=== PATIENT | male | born 2000 | race Caucasian/White ===

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

== ENCOUNTER 2022-06-29 13:13 | Emergency (ER) | payer MEDICAID, SELFPAY ==
--- NOTE | ~2022-06-29 | XR_ITS ---
EXAMINATION: XR FINGER, RIGHT CLINICAL INFORMATION: Right thumb trauma. COMPARISON: None TECHNIQUE: 3 views of the right hand first digit. FINDINGS: The bones and soft tissues are normal. No fracture. Alignment is anatomic. Joint spaces are maintained. XR/XR finger RT min 2V IMPRESSION: Unremarkable first digit.
[2022-06-29 14:04] VITALS: BP 132/70; PULSE 62; RESP 16; TEMP 36.4; O2SAT 100; BMI 33.0
--- NOTE | 2022-06-29 15:19 | ED.WOUNDLAC ---
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 Denies direct crush, trauma/fall, numbness/tingling. Vaccinations up-to-date Onset (ago): hour(s) Related Data Previous Rx's Medication Instructions Recorded acetaminophen 500 mg tablet 1,000 mg PO QID PRN fever or pain 12/30/20 (Tylenol Extra Strength) #14 tabs ibuprofen 800 mg tablet 800 mg PO Q8H PRN pain #14 tabs 12/30/20 bacitracin 500 unit/gram topical 1 appl topical BID #30 grams 06/29/22 ointment Allergies Allergy/AdvReac Type Severity Reaction Status Date / Time No Known Allergies Allergy Unverified 01/03/20 17:42 Review of Systems Review of Systems: Constitutional: No Fever, No Chills ENT/Mouth: No Ear Pain, No Nasal Congestion, No Sinus Pain, No Hoarseness, No sore throat, No Rhinorrhea, No Swallowing Difficulty Cardiovascular: No Chest Pain, No SOB Respiratory: No Cough, No Sputum, No Wheezing Gastrointestinal: No Nausea, No Vomiting, No Diarrhea, No Constipation, No Abdominal pain Musculoskeletal: + joint pain, No Myalgias, No Joint Swelling Skin: +Skin Lesions, No rash Neuro: No Weakness, No Numbness, No Paresthesias Yes all other systems are reviewed and are negative Constitutional: Constitutional: Reports as per [facility] Past Medical History Attestation statement: The following information was validated with the patient. Social History Social History Advance Directives: No Advance Directives Information Provided: Yes Physical Exam Vital Signs: Vital Signs: Last Vital Signs Temp 97.6 F 06/29/22 14:04 Pulse 62 06/29/22 14:04 Resp 16 06/29/22 14:04 BP 132/70 06/29/22 14:04 Pulse Ox 100 06/29/22 14:04 O2 Del Method 03/14/23 14:04 BMI result Body Mass Index 33.0 Const: General: cooperative, healthy appearing and no acute distress Orientation/consciousness: patient oriented x3 Limitations: no limitations HEENT: Head: Yes normal to inspection and Yes atraumatic Ears: hearing grossly normal bilaterally General nose exam: Normal external nose present Face and sinus: Yes normal facial exam Eyes: General: appearance normal, both eyes and all related structures EOM: EOMs intact bilaterally Neck: Neck: Yes normal visual inspection and Yes no meningeal signs Resp: Effort & Inspection: normal respiratory effort and no respiratory distress Cardio: Rate: regular rate Heart sounds: S1 normal heart sound present and S2 normal heart sound present Peripheral pulses: radial pulses present and ulnar radial pulses present Skin: Rashes: no rashes Neuro: General: patient oriented x3, tone normal and no meningeal signs Gait exam (Neuro): Normal gait present Extrem: Other: + superficial abrasion to right some with mild tenderness to palpation. No laceration. No drainage. FROM intact, NV intact. Finger to thumb opposition intact Course Course Course Narrative: XR finger RT min 2V IMPRESSION: Unremarkable first digit. Results discussed with patient including worrisome signs and symptoms and strict return precautions, and when to return to the emergency department. They verbalized understanding and feel safe for discharge at this time. Medical Decision Making Medical Decision Making MDM Narrative: 21-year-old male with no significant past medical history presenting to the ED complaining of right thumb pain/ injury S/P pulling snowblow starter [employer]. On exam vital signs stable, NAD, nontoxic appearing, physical exam as above with superficial abrasion to right thumb. Full range of motion and neurovascularly intact. Concern for strain. No laceration. Low suspicion for fracture/dislocation or tendon/ligament or rupture Plan: X-rays, wound care Please refer to course for remaining clinical decision making, interpretation of labs/imaging results, and discussions with consultants and/or family members. Differential Diagnosis Differential Diagnoses: The differential diagnosis associated with the presentation includes As above Admission/Observation Consideration of admission/observation: Escalation of care including admission/observation considered Lab Data [facility] Lab Attestation statement: I reviewed the patient's lab results. Radiology Impression Discussion of test interpretation with radiology: I have reviewed the radiologist's reading. External Record Review External record reviewed: Inpatient record, Office record, Outpatient record, Prior outpatient labs, Prior outpatient radiology, Primary care record and Outside ED record Discharge Plan Discharge Clinical Impression: Abrasion Patient Disposition: Home, Self-Care Instructions: Abrasion (ED) Additional Instructions: your Xray was unremarkbale keep dry and clean apply bacitracian daily if looks infected or red, or there is drainage return to the ED Prescriptions: New bacitracin 500 unit/gram ointment 1 appl topical BID Qty: 30 0RF No Action ibuprofen 800 mg tablet 800 mg PO Q8H PRN (Reason: pain) Qty: 14 0RF acetaminophen [Tylenol Extra Strength] 500 mg tablet 1,000 mg PO QID PRN (Reason: fever or pain) Qty: 14 0RF Referrals: Physician,None [Physician] - 5 days Stand Alone Forms: Work/School Release
== END 2022-06-29 16:04 | disposition home or self-care (01) ==
PROVIDERS: Emergency Provider Emergency Medicine
DX: S60.311A Abrasion of right thumb, initial encounter (principal); W22.8XXA Striking against or struck by other objects, initial encounter; M79.644 Pain in right finger(s); Y93.29 Activity, other involving ice and snow; Y92.038 Other place in apartment as the place of occurrence of the external cause; Y99.9 Unspecified external cause status
CPT/HCPCS: 73140; 99282; 99283

== ENCOUNTER 2023-07-19 04:16 | Emergency (ER) | payer SELFPAY ==
--- NOTE | 2023-07-19 | ECG_ITS ---
Test Reason : CHEST PAIN Blood Pressure : / mmHG Vent. Rate : 074 BPM Atrial Rate : 074 BPM P-R Int : 160 ms QRS Dur : 096 ms QT Int : 364 ms P-R-T Axes : -01 -17 -10 degrees QTc Int : 404 ms Normal sinus rhythm Minimal voltage criteria for LVH, may be normal variant ( R in aVL ) Borderline ECG No previous ECGs available Referred By: Generic ED Physician Electronically Signed By:SEBASTIÁN CHRISTIE MD
[2023-07-19 04:24] VITALS: BP 136/54; PULSE 71; RESP 16; TEMP 36.7; O2SAT 96; BMI 34.5
[2023-07-19 04:32] LABS: Basophils Percent Auto 0.3 % (0-2); Eosinophils Absolute Auto 0.5 X10*3/uL (0.0-0.4); Eosinophils Percent Auto 5.1 % (0-4); Hematocrit 45.2 % (42.0-52.0); Hemoglobin 15.6 g/dl (14.0-18.0); Imm Gran Abs Auto 0.03 X10*3/uL (0.00-0.03); Imm Gran Pct Auto 0.3 % (0.0-0.4); Lymphocytes Absolute Auto 3.2 X10*3/uL (1.2-4.9); Lymphocytes Percent Auto 31.9 % (20-40); MANUAL DIFF FLAG NO; Mean Corpuscular HGB Conc 34.5 g/dl (31.0-36.0); Mean Corpuscular Hemoglobin 28.6 pg (27.0-33.0); Mean Corpuscular Volume 82.9 fL (80.0-98.0); Monocytes Absolute Auto 0.8 X10*3/uL (0.1-1.2); Monocytes Percent Auto 7.9 % (2-11); Neutrophils Absolute Auto 5.4 x10*3/uL (2.0-8.3); Neutrophils Percent Auto 54.5 % (45-73); Platelet Count 276 X10*3/uL (160-400); Red Blood Count 5.45 X10*6/uL (4.60-5.80); White Blood Count 9.9 X10*3/uL (4.8-10.8)
[2023-07-19 04:49] LABS: Alanine Aminotransferase 31 U/L (0-40); Albumin Level 4.6 g/dL (3.5-5.0); Alkaline Phosphatase 51 U/L (39-117); Anion Gap 13 (12-20); Aspartate Amino Transferase 26 U/L (5-37); Bilirubin Total 0.5 mg/dL (0.0-1.0); Blood Urea Nitrogen 26 mg/dL (9-16); Calcium 9.6 mg/dL (8.4-10.2); Carbon Dioxide 27 mmol/L (22-29); Chloride 108 mmol/L (96-108); Creatinine Clr Calc Pharmacy 150.7; Estimated Glomerular Filt Rate > 60; Glucose Random 88 mg/dL (60-115); Sodium 144 mmol/L (135-145); Total Protein 7.6 g/dL (6.5-8.0)
[2023-07-19 04:57] LABS: Troponin-I High Sensitivity < 2.7 ng/L (<3.5-35.0)
--- NOTE | 2023-07-19 06:46 | ED.CHESTPAIN ---
HPI - Chest Pain General Chief Complaint: Chest Pain Stated Complaint: chest pain at work Time Seen by Provider: 07/19/23 06:43 Source: patient Mode of arrival: ambulatory Limitations: no limitations History of Present Illness HPI narrative: Patient comes to the emergency room complaining of right-sided chest pain that started while he was working. 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 Patient denies any shortness of breath. Patient states the pain started approximately 12 hours ago. Related Data Previous Rx's Medication Instructions Recorded acetaminophen 500 mg tablet 1,000 mg (2 x 500 mg) PO QID PRN 12/30/20 (Tylenol Extra Strength) fever or pain #14 tabs ibuprofen 800 mg tablet 800 mg PO Q8H PRN pain #14 tabs 12/30/20 bacitracin 500 unit/gram topical 1 appl topical BID #30 grams 06/29/22 ointment ibuprofen 600 mg tablet 600 mg PO Q6H PRN fever or pain 07/19/23 #20 tabs Allergies Allergy/AdvReac Type Severity Reaction Status Date / Time No Known Allergies Allergy Unverified 01/03/20 17:42 Review of Systems Review of Systems: Constitutional : No Weight loss, No Fever, No Chills, No Night Sweats, No Fatigue, No Malaise ENT/Mouth : No Hearing loss, No Ear Pain, No Nasal Congestion, No Sinus Pain, No Hoarseness, No sore throat, No Rhinorrhea, No Swallowing Difficulty Eyes: No Eye Pain, No Swelling, No Redness, No Foreign Body, No Discharge, No Vision Changes Cardiovascular : Complaining of right-sided Chest Pain, No SOB, No Dyspnea on Exertion, No Orthopnea, No Edema, No Palpitations Respiratory : No Cough, No Sputum, No Wheezing, No Smoke Exposure, No Dyspnea Gastrointestinal : No Nausea, No Vomiting, No Diarrhea, No Constipation, No abdominal Pain, No Hematochezia, No Melena Genitourinary : no irregular bleeding, No Dysuria, No Urinary Frequency, No Hematuria, No Urinary Incontinence, No Urgency, No Flank Pain, No Urinary Flow Changes, No Hesitancy Musculoskeletal : No joint pain, No Myalgias, No Joint Swelling Skin : No Skin Lesions, No rash Neuro : No Weakness, No Numbness, No Paresthesias, No Loss of Consciousness, No Dizziness, No Headache Psych : No Anxiety/Panic, No Depression, No SI/HI/AH/VH, No Social Issues, Heme/Lymph: No Bruising, No Bleeding,No Lymphadenopathy Endocrine : No Polyuria, No Polydipsia, No Temperature Intolerance Physical Exam Vital Signs: Vital Signs: Last Vital Signs Temp 98.0 F 07/19/23 04:24 Pulse 71 07/19/23 04:24 Resp 16 07/19/23 04:24 BP 136/54 L 07/19/23 04:24 Pulse Ox 96 07/19/23 04:24 O2 Del Method Room Air 07/19/23 04:24 BMI result Body Mass Index 34.5 Const: Other: Appearance: Alert. Oriented X3. No acute distress. Eyes: Pupils equal, round and reactive to light. ENT: Pharynx normal. Neck: Normal inspection. Neck supple. No lymph nodes noted. No crepitus CVS: Reproducible right chest pain to palpation, Normal heart rate and rhythm. Pulses normal. Normal S1 and S2 Respiratory: No respiratory distress. Breath sounds normal. No Wheezing. No rales Abdomen: Soft and nontender. No rigidity. No distention. Skin: Skin warm and dry. Normal skin color. Normal skin turgor. Extremities: No lower extremity edema. No Lacerations. No Rash Neuro: Oriented X 3. No motor deficit. No sensory deficit. Moving all extremities. No slurred speech. CN 2 through 12 grossly intact Psych: calm, cooperative, normal affect Medical Decision Making Medical Decision Making [facility] Narrative: My interpretation of labs: Normal hematology, chemistry, normal troponin -my interpretation of EKG: Normal sinus room, heart rate 74, no ST segment depression or elevation, nonspecific T-wave inversion in lead 3, QTC 404 -discussed the physical exam with the patient, patient has reproducible chest pain, likely musculoskeletal pain -heart score 0 Differential Diagnosis Differential Diagnoses: The differential diagnosis associated with the presentation includes (Musculoskeletal pain, ACS, anxiety) Lab Data [facility] Lab Attestation statement: I reviewed the patient's lab results. 07/19/23 04:26 07/19/23 04:26 Labs: Lab Results 07/19/23 Range/Units 04:26 WBC 9.9 (4.8-10.8) X10*3/uL RBC 5.45 (4.60-5.80) X10*6/uL Hgb 15.6 (14.0-18.0) g/dl Hct 45.2 (42.0-52.0) % MCV 82.9 (80.0-98.0) fL MCH 28.6 (27.0-33.0) pg MCHC 34.5 (31.0-36.0) g/dl RDW 12.0 (11.0-16.0) % Plt Count 276 (160-400) X10*3/uL MPV 10.0 (9.4-12.4) fL Immature Gran % (Auto) 0.3 (0.0-0.4) % Neut % (Auto) 54.5 (45-73) % Lymph % (Auto) 31.9 (20-40) % [place] % (Auto) 7.9 (2-11) % Eos % (Auto) 5.1 H (0-4) % Baso % (Auto) 0.3 (0-2) % Lymph # (Auto) 3.2 (1.2-4.9) X10*3/uL [place] # (Auto) 0.8 (0.1-1.2) X10*3/uL Eos # (Auto) 0.5 H (0.0-0.4) X10*3/uL Baso # (Auto) 0.0 (0.0-0.2) X10*3/uL Abs Immat Gran (auto) 0.03 (0.00-0.03) X10*3/uL Absolute Neuts (auto) 5.4 (2.0-8.3) x10*3/uL Absolute Nucleated RBC 0.000 (0.0-0.012) X10*3/uL Nucleated RBC % (auto) 0.0 (0.0-0.2) /100WBC Sodium 144 (135-145) mmol/L Potassium 4.0 (3.3-5.1) mmol/L Chloride 108 (96-108) mmol/L Carbon Dioxide 27 (22-29) mmol/L Anion Gap 13 (12-20) BUN 26 H (9-16) mg/dL Creatinine 0.88 (0.5-1.4) mg/dL Estim Creat Clear Calc 150.7 Estimated GFR > 60 Random Glucose 88 (60-115) mg/dL Calcium 9.6 (8.4-10.2) mg/dL Total Bilirubin 0.5 (0.0-1.0) mg/dL AST 26 (5-37) U/L ALT 31 (0-40) U/L Alkaline Phosphatase 51 (39-117) U/L Troponin I High Sens < 2.7 (<3.5-35.0) ng/L Total Protein 7.6 (6.5-8.0) g/dL Albumin 4.6 (3.5-5.0) g/dL Independent Interpretation I performed an independent interpretation of an: EKG Scores Heart Score History: -0- slightly suspicious Age: -0- < or = 45 Risk factory: -0- no risk factors known Troponin: -0- < or = normal limit Discharge Plan Discharge Clinical Impression: Atypical chest pain Patient Disposition: Home, Self-Care Instructions: Chest Pain (ED), Chest Wall Pain (ED) Additional Instructions: Please follow-up with your primary care physician tomorrow. If you have any worsening or new symptoms, please return to the emergency room or call 911 Prescriptions: New ibuprofen 600 mg tablet 600 mg PO Q6H PRN (Reason: fever or pain) Qty: 20 0RF No Action ibuprofen 800 mg tablet 800 mg PO Q8H PRN (Reason: pain) Qty: 14 0RF acetaminophen [Tylenol Extra Strength] 500 mg tablet 1,000 mg PO QID PRN (Reason: fever or pain) Qty: 14 0RF bacitracin 500 unit/gram ointment 1 appl topical BID Qty: 30 0RF
[2023-07-19 06:50] VITALS: BP 128/59; PULSE 75; RESP 16; TEMP 36.7; O2SAT 99
== END 2023-07-19 06:57 | disposition home or self-care (01) ==
PROVIDERS: Emergency Provider Emergency Medicine
DX: R07.89 Other chest pain (principal)
CPT/HCPCS: 36415; 80053; 84484; 85025; 93005; 99283; 99284

== ENCOUNTER → 2023-07-19 04:19 | Outpatient (BNV) | payer OTHER, SELFPAY | PROVIDERS: Emergency Provider Emergency Medicine; Visit Provider Internal Medicine Cardiovascular Disease | DX: R07.9 Chest pain, unspecified (principal) | CPT/HCPCS: 93010 ==

== ENCOUNTER 2023-08-27 02:04 | Emergency (ER) | payer SELFPAY ==
--- NOTE | ~2023-08-27 | XR_ITS ---
EXAMINATION: XR KNEE, LEFT CLINICAL INFORMATION: Injury at [employer] COMPARISON: 05/23/2017 TECHNIQUE: Two views of the left knee. FINDINGS: Osseous alignment is anatomic, and the joint spaces are maintained. No acute fracture is seen. No significant effusion. XR/XR knee LT 2V IMPRESSION: No acute findings.
[2023-08-27 02:14] VITALS: BP 141/85; PULSE 70; RESP 14; TEMP 36.9; O2SAT 98; BMI 36.3
[2023-08-27 02:56] VITALS: BP 132/82; PULSE 87; RESP 18; TEMP 36.7; O2SAT 95
--- NOTE | 2023-08-27 03:19 | ED_ITS ---
HPI - Extremity Injury (Lower) General Chief Complaint: Extremity Injury, Lower Stated Complaint: left [place] [email or web address] [place] Time Seen by Provider: 08/27/23 02:59 Source: patient Mode of arrival: ambulatory Limitations: no limitations History of Present Illness HPI Narrative: Patient with jumping on [email or web address] when he fell his left knee popped backwards since then complaining of increased pain when bear wt on the left leg with slight swelling of the left knee joint Related Data Previous Rx's ?Medication ?Instructions ?Recorded acetaminophen 500 mg tablet 1,000 mg (2 x 500 mg) PO QID PRN 12/30/20 (Tylenol Extra Strength) fever or pain #14 tabs ibuprofen 800 mg tablet 800 mg PO Q8H PRN pain #14 tabs 12/30/20 bacitracin 500 unit/gram topical 1 appl topical BID #30 grams 06/29/22 ointment ibuprofen 600 mg tablet 600 mg PO Q6H PRN fever or pain 07/19/23 #20 tabs ibuprofen 600 mg tablet 600 mg PO Q6H PRN fever or pain 08/27/23 #30 tabs Allergies Allergy/AdvReac Type Severity Reaction Status Date / Time No Known Allergies Allergy Verified 08/27/23 02:15 Review of Systems 2 Review of Systems: Yes all other systems are reviewed and are negative PMFSH Social History Social History Alcohol intake: current Alcohol intake frequency: a few times a month Smoked in Last 30 Days: No Use of substances other than those prescribed or required for medical reasons: No Advance Directives: No Advance Directives Information Provided: Yes Physical Exam 2 Vital Signs: Vital Signs: Last Vital Signs Temp 98.0 F 08/27/23 03:53 Pulse 84 08/27/23 03:53 Resp 18 08/27/23 03:53 BP 148/73 H 08/27/23 03:53 Pulse Ox 98 08/27/23 03:53 O2 Del Method Room Air 08/27/23 03:53 BMI result Body Mass Index 36.3 Extrem: Knee images: 1. Mild joint effusion diffuse tenderness good range of movement Chance sign negative anterior drawer sign negative increased pain on ambulation Medications Administered Discontinued Medications Generic Name Dose Route Start Last Admin Trade Name Freq PRN Reason Stop Dose Admin Ibuprofen 600 mg 08/27/23 03:28 08/27/23 03:38 Ibuprofen 600 Mg Tablet PO 08/27/23 03:29 600 mg ONCE ONE Administration Medical Decision Making Medical Decision Making [facility] Narrative: Patient with left knee injury x-ray negative for fracture clinically lateral ligament strain will apply knee immobilizer ibuprofen for pain crutches for support Independent Interpretation I performed an independent interpretation of an: Plain X-Ray Interpretation: Knee effusion+ no fracture Radiology Impression Discussion of test interpretation with radiology: I have reviewed the radiologist's reading. Discharge Plan Discharge Clinical Impression: Strain of left knee Patient Disposition: Home, Self-Care Instructions: Knee Sprain (ED) Additional Instructions: Wear knee brace and use crutches for ambulation Ibuprofen for pain Avoid going upstairs or downstairs Follow with your PCP if not better in 2 weeks Prescriptions: New ibuprofen 600 mg tablet 600 mg PO Q6H PRN (Reason: fever or pain) Qty: 30 0RF No Action ibuprofen 800 mg tablet 800 mg PO Q8H PRN (Reason: pain) Qty: 14 0RF acetaminophen [Tylenol Extra Strength] 500 mg tablet 1,000 mg PO QID PRN (Reason: fever or pain) Qty: 14 0RF bacitracin 500 unit/gram ointment 1 appl topical BID Qty: 30 0RF ibuprofen 600 mg tablet 600 mg PO Q6H PRN (Reason: fever or pain) Qty: 20 0RF Stand Alone Forms: Work/School Release Interventions: ED Discharge Assessment Last Done: 08/27/23 03:53 Discharge Date/Time: 08/27/23 03:53 Print Language: Wolof
[2023-08-27] MEDS: Ibuprofen 600 MG TABLET PO (03:38)
[2023-08-27 03:51] VITALS: BP 148/73; PULSE 84; RESP 18; TEMP 36.7; O2SAT 98
[2023-08-27 03:53] VITALS: BP 148/73; PULSE 84; RESP 18; TEMP 36.7; O2SAT 98
== END 2023-08-27 03:53 | disposition home or self-care (01) ==
PROVIDERS: Emergency Provider Internal Medicine
DX: S86.912A Strain of unspecified muscle(s) and tendon(s) at lower leg level, left leg, initial encounter (principal); X58.XXXA Exposure to other specified factors, initial encounter; Y93.9 Activity, unspecified; Y92.9 Unspecified place or not applicable; Y99.9 Unspecified external cause status; M25.562 Pain in left knee
CPT/HCPCS: 73560; 99283; 99284

== ENCOUNTER 2023-11-21 19:20 | Emergency (ER) | payer OTHER, SELFPAY ==
[2023-11-21 20:32] VITALS: BP 147/73; PULSE 70; RESP 16; TEMP 36.6; O2SAT 98; BMI 36.3
--- NOTE | 2023-11-21 20:38 | ED_ITS ---
HPI - General Adult General Chief complaint: Skin/Abscess/Foreign Body Stated complaint: rash Time Seen by Provider: 11/21/23 20:37 Source: patient Mode of arrival: ambulatory Limitations: no limitations History of Present Illness ED Provider: Tian Whitehead PA-C HPI narrative: 23 yold healthy male presents to the ED itchy rash on abdomen, upper extremities, lower extremites, and face since last . patient states no new medicaitions, detergents, or foods. Patient denies being bitten by animal. patient states no lip swelling, tongue swelling, facial swelling, chest pain, shortness of breath, or sensation of throat closing. Related Data Previous Rx's ?Medication ?Instructions ?Recorded acetaminophen 500 mg tablet 1,000 mg (2 x 500 mg) PO QID PRN 12/30/20 (Tylenol Extra Strength) fever or pain #14 tabs ibuprofen 800 mg tablet 800 mg PO Q8H PRN pain #14 tabs 12/30/20 bacitracin 500 unit/gram topical 1 appl topical BID #30 grams 06/29/22 ointment ibuprofen 600 mg tablet 600 mg PO Q6H PRN fever or pain 07/19/23 #20 tabs ibuprofen 600 mg tablet 600 mg PO Q6H PRN fever or pain 08/27/23 #30 tabs diphenhydramine HCl 25 mg capsule 25 mg PO TID PRN itching 7 days 11/21/23 (Benadryl) #21 caps famotidine 20 mg tablet (Pepcid) 20 mg PO BID 5 days #10 tabs 11/21/23 prednisone 20 mg tablet 40 mg (2 x 20 mg) PO DAILY 5 days 11/21/23 #10 tabs Allergies Allergy/AdvReac Type Severity Reaction Status Date / Time No Known Allergies Allergy Verified 11/21/23 20:34 Review of Systems 2 Review of Systems: itchy rash Yes all other systems are reviewed and are negative PMFSH Social History Social History Alcohol intake: current Alcohol intake frequency: a few times a month Advance Directives: No Advance Directives Information Provided: No Physical Exam ED Vital Signs: Vital Signs - 24 hr 11/21/23 20:32 11/21/23 20:47 Temperature 97.9 F 97.9 F Pulse Rate 70 70 Respiratory Rate 16 16 Blood Pressure 147/73 H 147/73 H Pulse Oximetry 98 98 Oxygen Delivery Method Room Air Room Air BMI result Body Mass Index 36.3 Const General: cooperative, healthy appearing, comfortable, no acute distress, well developed, alert, awake and Physically active Orientation/consciousness: patient oriented x3 [facility] Other: negative lip swelling, tongue swelling, or uvula swelling. Head: Yes normal to inspection, Yes No palpable skull fracture present, Yes normocephalic and Yes atraumatic Head images: 2 1. positive for uticaria rash 2. positive for uticaria rash 3. positive for uticaria rash Ears: hearing grossly normal bilaterally, external ears normal, TM's normal bilaterally, TM normal on the right, TM normal on the left, EAC's normal, mastoids normal and no periauricular adenopathy Throat: Yes posterior oropharynx normal, Yes tonsils normal and Yes uvula midline Eyes General: appearance normal, both eyes and all related structures Neck Neck: Yes normal visual inspection, Yes full ROM, Yes no lymphadenopathy, Yes no meningeal signs, Yes trachea midline, Yes supple, No anterior neck swelling and No tender Chest Chest palpation & inspection: normal inspection of the chest and normal palpation of entire chest wall Resp Effort & Inspection: normal respiratory effort and able to speak in complete sentences Auscultation: clear to auscultation bilaterally Cardio Jugular venous distension: no JVD Heart sounds: S1 normal heart sound present and S2 normal heart sound present GI Inspection: Yes normal to inspection and No abdominal wall ecchymosis Palpation (GI): Soft to palpation, not firm, nontender, no guarding and not rigid General: Yes no CVA tenderness Back/Spine/Pelvis Back: no CVA tenderness and No back tenderness Skin General skin exam: elasticity normal and turgor normal Full body images: 2 1. positive for uticaria rash 2. positive for uticaria rash 3. positive for uticaria rash 4. positive for uticaria rash 5. positive for uticaria rash Neuro General: patient oriented x3, gait normal, tone normal, moves all extremities, Normal light touch and pain sensation, no meningeal signs, no focal motor deficits, CN's II-XI intact bilaterally and normal sensation to monofilament Extrem General: Yes normal to inspection, Yes full ROM and Yes capillary refill normal Psych Appearance: grossly normal, well kempt and not disheveled Medical Decision Making Medical Decision Making MDM Narrative: 23 yold male presents to the ED for itchy rash since Tuesday. Patient has rash on right arm, right leg, abdomen, and back. Patient also has some you to car rash on his face. Negative for lip swelling or uvula swelling. Lungs are clear. Not suspect anaphylaxis. No erythema migraine rash indicate tick. Patient will be discharged with Benadryl prednisone and Pepcid. Patient informed to follow up with primary care provider. patient explained worrisome signs and informed to return to the ED immediatley. Differential Diagnosis Differential Diagnoses: The differential diagnosis associated with the presentation includes (Allergic reaction, contact dermatitis, hives) Admission/Observation Consideration of admission/observation: Escalation of care including admission/observation considered Independent Historian Clinical information obtained from an independent historian. History obtained from or confirmed by: Other (patient) External Record Review External record reviewed: Other (prior visit) Prescription Management I considered prescription management with: Other (Benadryl, prednisone, and Pepcid) Discharge Plan Discharge Clinical Impression: Urticaria, Allergic reaction Patient Disposition: Home, Self-Care Instructions: Urticaria (ED), General Allergic Reaction (ED) Additional Instructions: Recommend follow-up with primary care provider. Follow-up with [facility], [phone]. [address] [facility], [place] [address]. [email or web address] You can make an appointment online on the web site. Return to the ED immediately for any lip swelling, worsening rash, fever, chills, nausea, vomiting, swelling of tongue, drooling, change in voice, sensation of throat closing, or any other concerning symptoms. Prescriptions: New diphenhydramine HCl [Benadryl] 25 mg capsule 25 mg PO TID PRN (Reason: itching) 7 Days Qty: 21 0RF prednisone 20 mg tablet 40 mg PO DAILY 5 Days Qty: 10 0RF famotidine [Pepcid] 20 mg tablet 20 mg PO BID 5 Days Qty: 10 0RF No Action ibuprofen 800 mg tablet 800 mg PO Q8H PRN (Reason: pain) Qty: 14 0RF acetaminophen [Tylenol Extra Strength] 500 mg tablet 1,000 mg PO QID PRN (Reason: fever or pain) Qty: 14 0RF bacitracin 500 unit/gram ointment 1 appl topical BID Qty: 30 0RF ibuprofen 600 mg tablet 600 mg PO Q6H PRN (Reason: fever or pain) Qty: 30 0RF ibuprofen 600 mg tablet 600 mg PO Q6H PRN (Reason: fever or pain) Qty: 20 0RF Stand Alone Forms: Work/School Release Interventions: ED Discharge Assessment Last Done: 11/21/23 20:47 Discharge Date/Time: 11/21/23 20:51 Print Language: Uzbek
[2023-11-21 20:47] VITALS: BP 147/73; PULSE 70; RESP 16; TEMP 36.6; O2SAT 98
== END 2023-11-21 20:51 | disposition home or self-care (01) ==
PROVIDERS: Emergency Provider Student in an Organized Health Care Education/Training Program
DX: L50.0 Allergic urticaria (principal)
CPT/HCPCS: 99282; 99283

== ENCOUNTER 2024-01-10 06:07 | Emergency (ER) | payer MEDICAID, SELFPAY ==
--- NOTE | ~2024-01-10 | XR_ITS ---
EXAMINATION: XR CHEST CLINICAL INFORMATION: Cough and shortness of breath COMPARISON: 01/05/2019 TECHNIQUE: Frontal view of the chest was obtained. FINDINGS: Given lordotic positioning, lungs considered clear. Heart and pulmonary vessels are normal. XR/XR chest 1V IMPRESSION: No active disease. Electronically signed by: Arun Norris MD 01/10/2024 09:38 AM EDT
[2024-01-10 06:41] VITALS: BP 141/66; PULSE 75; RESP 20; TEMP 36.8; O2SAT 95; BMI 30.5
--- NOTE | 2024-01-10 06:52 | ED_ITS ---
HPI - URI/Sore Throat General Chief Complaint: Upper Respiratory Symptoms Stated Complaint: SoB Time Seen by Provider: 01/10/24 06:50 Source: patient Mode of arrival: ambulatory Limitations: no limitations History of Present Illness ED Provider: Steph Cornelius PA-C HPI Narrative: 23 yo male presenting to the ER for evaluation of shortness of breath, chest congestion, and cough for the last 2 days. He states he woke up today with difficulty breathing. Hx asthma as a child but not as an adult, has not had breathing difficulties in several years. He denies any sick contacts. No fevers, chills, N/V/D, abdominal pain. endorses mild midsternal, nonradiating chest pain when he coughs. cough is dry. MD elicited complaint: cough and other (sob) Pertinent past history: asthma Onset (ago): day(s) (2) Consistency: constant Able to tolerate fluids by mouth: Yes Exacerbating factors: nothing Relieving factors: nothing Associated symptoms: nasal congestion, chest pain and shortness of breath Treatments prior to arrival: none Related Data Previous Rx's ?Medication ?Instructions ?Recorded acetaminophen 500 mg tablet 1,000 mg (2 x 500 mg) PO QID PRN 12/30/20 (Tylenol Extra Strength) fever or pain #14 tabs ibuprofen 800 mg tablet 800 mg PO Q8H PRN pain #14 tabs 12/30/20 bacitracin 500 unit/gram topical 1 appl topical BID #30 grams 06/29/22 ointment ibuprofen 600 mg tablet 600 mg PO Q6H PRN fever or pain 07/19/23 #20 tabs ibuprofen 600 mg tablet 600 mg PO Q6H PRN fever or pain 08/27/23 #30 tabs diphenhydramine HCl 25 mg capsule 25 mg PO TID PRN itching 7 days 11/21/23 (Benadryl) #21 caps famotidine 20 mg tablet (Pepcid) 20 mg PO BID 5 days #10 tabs 11/21/23 prednisone 20 mg tablet 40 mg (2 x 20 mg) PO DAILY 5 days 11/21/23 #10 tabs Allergies Allergy/AdvReac Type Severity Reaction Status Date / Time No Known Allergies Allergy Verified 01/10/24 06:41 Review of Systems 2 Review of Systems: Yes all other systems are reviewed and are negative PMFSH Social History Social History Alcohol intake: current Alcohol intake frequency: a few times a month Advance Directives: No Advance Directives Information Provided: No Do you have a plan to hurt others: No Plan Physical Exam 2 Vital Signs: Vital Signs: Last Vital Signs Temp 98.2 F 01/10/24 06:41 Pulse 75 01/10/24 06:41 Resp 20 01/10/24 06:41 BP 141/66 H 01/10/24 06:41 Pulse Ox 95 01/10/24 06:41 O2 Del Method Room Air 01/10/24 06:41 BMI result Body Mass Index 30.5 Appearance: Alert. Oriented X3. No acute distress. Head: normocephalic, atraumatic. Eyes: Pupils equal, round and reactive to light. ENT: Pharynx normal. No tonsillar swelling or exudate. Neck: Normal inspection. Neck supple. CVS: Normal heart rate and rhythm. Pulses normal. Respiratory: No respiratory distress. Breath sounds normal. Abdomen: Soft and nontender. +BS x4 Skin: Skin warm and dry. Normal skin color. Normal skin turgor. No rashes. Extremities: No lower extremity edema. No joint swelling. Negative Nerissa's sign Neuro/psych: Oriented X 3. No motor deficit. No sensory deficit. CN II-XII intact. Normal speech and cognition. Medical Decision Making Medical Decision Making [facility] Narrative: 23 yo male presenting for evaluation of 2 days of cough and SOB. VSS on arrival. Lungs are CTAB. Lab work done shows no leukocytosis, no anemia. His electrolytes are within normal limits. His viral swab was negative for COVID, flu, RSV. Chest x-ray was reviewed and no evidence of focal infiltrate, no cardiomegaly or effusion. Clinical presentation most consistent with a viral process. Does not appear to be having an active asthma exacerbation. No need for steroids or antibiotics. We discussed the results of his tests, treatment plan and return precautions. Stable for discharge home Differential Diagnosis Differential Diagnoses: The differential diagnosis associated with the presentation includes covid, flu, rsv, other viral syndrome, bronchitis, pneumonia, low suspicion for ACS or PE Admission/Observation Consideration of admission/observation: Escalation of care including admission/observation considered Lab Data [facility] Lab Attestation statement: I reviewed the patient's lab results. 01/10/24 07:05 01/10/24 07:05 Labs: Lab Results 01/10/24 Range/Units 07:05 WBC 7.7 (4.8-10.8) X10*3/uL RBC 5.58 (4.60-5.80) X10*6/uL Hgb 16.1 (14.0-18.0) g/dl Hct 46.5 (42.0-52.0) % MCV 83.3 (80.0-98.0) fL MCH 28.9 (27.0-33.0) pg MCHC 34.6 (31.0-36.0) g/dl RDW 12.1 (11.0-16.0) % Plt Count 250 (160-400) X10*3/uL MPV 9.9 (9.4-12.4) fL Immature Gran % (Auto) 0.3 (0.0-0.4) % Neut % (Auto) 56.7 (45-73) % Lymph % (Auto) 27.7 (20-40) % [place] % (Auto) 9.2 (2-11) % Eos % (Auto) 5.7 H (0-4) % Baso % (Auto) 0.4 (0-2) % Lymph # (Auto) 2.1 (1.2-4.9) X10*3/uL [place] # (Auto) 0.7 (0.1-1.2) X10*3/uL Eos # (Auto) 0.4 (0.0-0.4) X10*3/uL Baso # (Auto) 0.0 (0.0-0.2) X10*3/uL Abs Immat Gran (auto) 0.02 (0.00-0.03) X10*3/uL Absolute Neuts (auto) 4.4 (2.0-8.3) x10*3/uL Absolute Nucleated RBC 0.000 (0.0-0.012) X10*3/uL Nucleated RBC % (auto) 0.0 (0.0-0.2) /100WBC Sodium 144 (135-145) mmol/L Potassium 3.7 (3.3-5.1) mmol/L Chloride 110 H (96-108) mmol/L Carbon Dioxide 25 (22-29) mmol/L Anion Gap 13 (12-20) BUN 16 (9-16) mg/dL Creatinine 0.96 (0.5-1.4) mg/dL Estim Creat Clear Calc 124.9 Estimated GFR > 60 Random Glucose 98 (60-115) mg/dL Calcium 9.7 (8.4-10.2) mg/dL Total Bilirubin 0.3 (0.0-1.0) mg/dL AST 22 (5-37) U/L ALT 30 (0-40) U/L Alkaline Phosphatase 61 (39-117) U/L Total Protein 7.2 (6.5-8.0) g/dL Albumin 4.4 (3.5-5.0) g/dL Influenza Type A (PCR) NEGATIVE (Negative) Influenza Type B (PCR) NEGATIVE (Negative) RSV RNA Qual (PCR) NEGATIVE (Negative) SARS-CoV-2 RNA (RT-PCR) NEGATIVE (Negative) Independent Interpretation I performed an independent interpretation of an: Plain X-Ray Interpretation: Chest x-ray is clear without any evidence of pneumonia or focal infiltrate Radiology Impression Discussion of test interpretation with radiology: I have reviewed the radiologist's reading. Independent Historian Clinical information obtained from an independent historian. History obtained from or confirmed by: Spouse External Record Review External record reviewed: Outpatient record, Prior outpatient labs and Prior outpatient radiology Prescription Management I considered prescription management with: Antiviral and Antibiotic Chronic Conditions Patient?s care impacted by: Other (Asthma) Critical Care Time Critical Care Time Critical Care Time: No Discharge Plan Discharge Clinical Impression: Viral infection Patient Disposition: Home, Self-Care Instructions: Viral Syndrome (ED) Additional Instructions: You tested negative for COVID, Flu, RSV Your labs were normal Your chest x-ray was clear Your lung sounds and oxygen levels are normal Symptoms are most likely due to a viral upper respiratory infection Treatment is rest and supportive care, take over the counter cold/flu medications as needed for your symptoms If you develop new or worsening symptoms call 911 or come back to the ER for further evaluation. Prescriptions: No Action ibuprofen 800 mg tablet 800 mg PO Q8H PRN (Reason: pain) Qty: 14 0RF acetaminophen [Tylenol Extra Strength] 500 mg tablet 1,000 mg PO QID PRN (Reason: fever or pain) Qty: 14 0RF bacitracin 500 unit/gram ointment 1 appl topical BID Qty: 30 0RF ibuprofen 600 mg tablet 600 mg PO Q6H PRN (Reason: fever or pain) Qty: 30 0RF ibuprofen 600 mg tablet 600 mg PO Q6H PRN (Reason: fever or pain) Qty: 20 0RF diphenhydramine HCl [Benadryl] 25 mg capsule 25 mg PO TID PRN (Reason: itching) 7 Days Qty: 21 0RF prednisone 20 mg tablet 40 mg PO DAILY 5 Days Qty: 10 0RF famotidine [Pepcid] 20 mg tablet 20 mg PO BID 5 Days Qty: 10 0RF Stand Alone Forms: Work/School Release Print Language: Uruguayan
--- OUTSIDE RECORDS SUMMARY | 2024-01-10 07:05 | XMS_ITS | Continuity of Care Document ---
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 Role Phone Long JOHNBrie Primary Care Physician Encounter [facility] Date(s): 04/24/21 - 04/24/[address] [address]- Discharge Disposition: A-D/C Home Attending Physician: Teofilo Whittaker DO Admitting Physician: Teofilo Whittaker DO Referring Physician: Not on Staff, Referring MD Allergies, Adverse Reactions, Alerts Substance Reaction Severity Status NKA Active Medications acetaminophen 325 mg oral tablet By Mouth, Every 6 hours, PRN Pain , Moderate, 0 Refills, Maintenance, 09/10/13 12:49:35, Tablet Start Date: 09/10/13 Status: Ordered Albuterol PRN Wheezing/Shortness of Breath, 0 Refills, Maintenance, 09/10/13 5:13:19 Start Date: 09/10/13 Status: Ordered Results Radiology Reports * Exam Date Time Procedure Performing Provider Status 04/24/21 7:11 PM Ankle Min 3 Views Left Bein , Khalida; Aut h (Verified) Notes: (Ankle Min 3 Views Left) Reason For Exam: with Pain;Trauma RESULT: Ankle Min 3 Views Left Ankle Min 3 Views Left Hx of Present Illness: mechanical slip down stairs, twisted L ankle now in pain, no other injury; Reason: Trauma; with Pain; Clinical Question(s): Fracture; Special Instructions: This is a protocol film and radiologist should call any findings to the Charge Nurse COMPARISON: None. FINDINGS: No evidence of acute or healing fracture or bone lesion. Intact ankle mortise and talar dome. No arthritic changes. Normal soft tissues. IMPRESSION: No acute abnormality. WSN: [id number] Ordering Physician: Khari Otero Dictated By: Rajesh Page MD Dictated Date/Time: 04/24/21 7:17 pm Reviewed By: Rajesh Page MD Signed By: Rajesh Page MD Signed Date/Time: 04/24/21 7:17 pm Transcribed By: DOLORES Transcribed Date/Time: 04/24/21 7:16 pm Vital Signs Most recent to oldest [Reference Range]: 1 2 Oxygen Saturation [94-100 %] 99 % (04/24/21 8:28 PM) 100 % (04/24/21 6:34 PM) Pulse Rate [55-90 bpm] 75 bpm (04/24/21 8:28 PM) 82 bpm (04/24/21 6:34 PM) Blood Pressure [71-110/30-71 mm Hg] 116/ 68mm Hg *H* (04/24/21 8:28 PM) 135/67mm Hg *H* (04/24/21 6:34 PM) Respiratory Rate [16-30 br/min] 18 br/mi n (04/24/21 6:34 PM) Temperature [96.8-100.4 DegF] 98.1 DegF (04/24/21 8:28 PM) 97.9 DegF (04/24/21 6:34 PM) Mode of Delivery (Oxygen) Room air (04/24/21 8:28 PM) Room air (04/24/21 6:34 PM) Blood pressure sites Arm, left (04/24/21 8:28 PM) Arm, left (04/24/21 6:34 PM) Temperature Route Oral (04/24/21 8:28 PM) Oral (04/24/21 6:34 PM)
[2024-01-10 07:09] LABS: MANUAL DIFF FLAG NO
[2024-01-10 07:10] LABS: Basophils Percent Auto 0.4 % (0-2); Eosinophils Absolute Auto 0.4 X10*3/uL (0.0-0.4); Eosinophils Percent Auto 5.7 % (0-4); Hematocrit 46.5 % (42.0-52.0); Hemoglobin 16.1 g/dl (14.0-18.0); Imm Gran Abs Auto 0.02 X10*3/uL (0.00-0.03); Imm Gran Pct Auto 0.3 % (0.0-0.4); Lymphocytes Absolute Auto 2.1 X10*3/uL (1.2-4.9); Lymphocytes Percent Auto 27.7 % (20-40); Mean Corpuscular HGB Conc 34.6 g/dl (31.0-36.0); Mean Corpuscular Hemoglobin 28.9 pg (27.0-33.0); Mean Corpuscular Volume 83.3 fL (80.0-98.0); Mean Platelet Volume 9.9 fL (9.4-12.4); Monocytes Absolute Auto 0.7 X10*3/uL (0.1-1.2); Monocytes Percent Auto 9.2 % (2-11); Neutrophils Absolute Auto 4.4 x10*3/uL (2.0-8.3); Neutrophils Percent Auto 56.7 % (45-73); Platelet Count 250 X10*3/uL (160-400); Red Blood Count 5.58 X10*6/uL (4.60-5.80); Red Cell Distribution Width 12.1 % (11.0-16.0); White Blood Count 7.7 X10*3/uL (4.8-10.8)
[2024-01-10 07:40] LABS: Alanine Aminotransferase 30 U/L (0-40); Albumin Level 4.4 g/dL (3.5-5.0); Alkaline Phosphatase 61 U/L (39-117); Anion Gap 13 (12-20); Aspartate Amino Transferase 22 U/L (5-37); Bilirubin Total 0.3 mg/dL (0.0-1.0); Blood Urea Nitrogen 16 mg/dL (9-16); Calcium 9.7 mg/dL (8.4-10.2); Carbon Dioxide 25 mmol/L (22-29); Chloride 110 mmol/L (96-108); Creatinine Clr Calc Pharmacy 124.9; Estimated Glomerular Filt Rate > 60; Glucose Random 98 mg/dL (60-115); Potassium 3.7 mmol/L (3.3-5.1); Sodium 144 mmol/L (135-145); Total Protein 7.2 g/dL (6.5-8.0)
[2024-01-10 07:49] LABS: Influenza A PCR NEGATIVE (Negative); Influenza B PCR NEGATIVE (Negative); Resp Syncy Virus RNA Qual PCR NEGATIVE (Negative); SARS COV2 PCR INHOUSE NEGATIVE (Negative)
[2024-01-10 08:18] VITALS: BP 150/83; PULSE 67; RESP 14; TEMP 36.4; O2SAT 98
[2024-01-10 08:20] VITALS: BP 150/83; PULSE 67; RESP 14; TEMP 36.4; O2SAT 98
== END 2024-01-10 08:21 | disposition home or self-care (01) ==
PROVIDERS: Emergency Provider Emergency Medicine
DX: B34.9 Viral infection, unspecified (principal); J02.9 Acute pharyngitis, unspecified; R06.02 Shortness of breath; R05.9 Cough, unspecified; Z03.818 Encounter for observation for suspected exposure to other biological agents ruled out; Z79.899 Other long term (current) drug therapy
CPT/HCPCS: 0241U; 71045; 80053; 85025; 99282; 99283

== ENCOUNTER 2024-01-11 18:10 | Emergency (ER) | payer OTHER, SELFPAY ==
--- NOTE | ~2024-01-11 | XR_ITS ---
EXAMINATION: XR FOREARM, LEFT CLINICAL INFORMATION: Volar laceration with question of foreign body COMPARISON: None available. TECHNIQUE: AP and lateral views of the left forearm were obtained. FINDINGS: 3 radiopaque foreign bodies are seen within the volar soft tissues of the mid forearm. 2 measure less than 1 mm in size in the largest measures about 3.7 mm. No fractures. Mild disruption of the soft tissue likely corresponds to the patient's laceration. XR/XR forearm LT 2V IMPRESSION: 3 radiopaque foreign bodies are seen within the volar soft tissues of the mid forearm. Electronically signed by: Lucio Avery MD 01/11/2024 10:17 PM EDT
[2024-01-11] MEDS: Lidocaine HCl 1%/Epi 1:100,000 10 ML VIAL INFILTRATI (18:57)
--- NOTE | 2024-01-11 19:02 | PC.NURSE ---
Pt brought back to [facility] room 5 immediately upon arrival by wellness assistant and tourniquet applied. MD Delgado currently at bedside for laceration repair
--- NOTE | 2024-01-11 19:13 | ED.GENADULT ---
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 Heavy piece of equipment, I believe a gas tank, fell on his left forearm and caused large laceration to the left forearm. There was a lot of bleeding. At triage it seemed as though he was having arterial bleeding from the wound and a tourniquet was applied proximal to the bleeding. The patient has pain at the wound but does not have any sense of loss of sensation of the fingers of the hand and he feels he can move all his fingers. He denies any other injuries. He is not sure when he last had a tetanus shot. It has been a while. Related Data Previous Rx's ?Medication ?Instructions ?Recorded acetaminophen 500 mg tablet 1,000 mg (2 x 500 mg) PO QID PRN 12/30/20 (Tylenol Extra Strength) fever or pain #14 tabs ibuprofen 800 mg tablet 800 mg PO Q8H PRN pain #14 tabs 12/30/20 bacitracin 500 unit/gram topical 1 appl topical BID #30 grams 06/29/22 ointment ibuprofen 600 mg tablet 600 mg PO Q6H PRN fever or pain 07/19/23 #20 tabs ibuprofen 600 mg tablet 600 mg PO Q6H PRN fever or pain 08/27/23 #30 tabs diphenhydramine HCl 25 mg capsule 25 mg PO TID PRN itching 7 days 11/21/23 (Benadryl) #21 caps famotidine 20 mg tablet (Pepcid) 20 mg PO BID 5 days #10 tabs 11/21/23 prednisone 20 mg tablet 40 mg (2 x 20 mg) PO DAILY 5 days 11/21/23 #10 tabs cephalexin 500 mg capsule 500 mg PO QID 4 days #16 caps 01/11/24 Allergies Allergy/AdvReac Type Severity Reaction Status Date / Time No Known Allergies Allergy Verified 01/11/24 19:01 Review of Systems Review of Systems: Yes all other systems are reviewed and are negative PMFSH Social History Social History Alcohol intake: current Alcohol intake frequency: a few times a month Smoked in Last 30 Days: No Use of substances other than those prescribed or required for medical reasons: No Advance Directives: No Advance Directives Information Provided: No Physical Exam ED Vital Signs: Vital Signs - 24 hr 01/11/24 19:19 Temperature 97.8 F Pulse Rate 85 Respiratory Rate 16 Blood Pressure 149/85 H Pulse Oximetry 97 Oxygen Delivery Method Room Air BMI result Body Mass Index 0.0 Const Other: The patient is a healthy looking 23-year-old who was awake and alert. He had a dressing applied to the left mid forearm and a tourniquet just above the elbow. He was calm and cooperative. HENMT Other: Head and face are unremarkable. Eyes General: appearance normal, both eyes and all related structures Resp Effort & Inspection: normal respiratory effort Skin Other: The patient has an approximately 9 cm laceration to the left mid volar forearm. The laceration is more on the ulnar side of the mid volar forearm. The laceration is gaping wound which is somewhat irregular. There is some obvious injured muscle apparent in the wound. It was copiously bleeding when the tourniquet was taken down. However the bleeding did not seem to reflect any large artery bleeding. Neuro Other: The patient has intact sensation on both sides of all the fingers of the left hand. On examination after the wound repair it was apparent the patient had an area of diminished sensation to the distal volar forearm between the wound and the wrist. The patient has intact motor function of the fingers. The picture below outlines the area on the distal forearm where there is diminished sensation. Extrem Other: The patient has a large laceration to the left mid volar forearm. There was some obvious muscle belly injury seen in the wound. The patient has good flexion and extension function of all the fingers. However with the ring finger he had pain when flexion was resisted. Although he had pain he still had fairly good strength in the flexion function of the finger. Medications Administered Discontinued Medications Generic Name Dose Route Start Last Admin Trade Name Freq PRN Reason Stop Dose Admin Diphtheria/Tetanus/Acell Pertussis 0.5 ml 01/11/24 19:13 01/11/24 19:51 Diphth,Pertus(Acell),Tet Adult 0.5 Ml Syringe IM 01/11/24 19:14 0.5 ml .ONCE ONE Administration Cefazolin Sodium/Dextrose 2 gm in 50 mls @ 100 mls/hr 01/11/24 19:13 01/11/24 19:47 Ancef IV 01/11/24 19:42 100 mls/hr ONCE ONE Administration Lidocaine/Epinephrine 10 ml 01/11/24 18:30 01/11/24 18:57 Lidocaine Hcl 1%/Epi 1:100,000 10 Ml Vial INFILTRATI 01/11/24 18:31 10 ml ONCE ONE Administration Procedures Laceration Laceration 1: Site: upper extremity Side (If applicable): left Size (cm): 9 Description: linear Depth: involves muscle layer Local Anesthetic: lidocaine 1% and with epi Amount of anesthesia used (mL): 10 Pre-repair: wound explored and irrigated extensively Skin layer closed with: nylon Size (cm): 3-0 Number of sutures: 8 Technique: simple, interrupted and other (Vertical mattress as well as simple interrupted stitches) Medical Decision Making Medical Decision Making MDM Narrative: The patient is a 23-year-old male right-hand dominant who arrived by private vehicle after sustaining a laceration to the left mid volar forearm at work. Apparently a heavy piece of metal equipment fell on the arm and caused a laceration. The patient believes it was something like a gas tank that fell on his forearm. He did not think that there was any significant foreign body associated with the injury. There was a great deal of bleeding and triage it seemed as though he was having arterial bleeding. A tourniquet was applied at triage. I saw the patient soon after. The patient seemed to have intact sensation and motor function, particularly flexor function, of all the fingers of the hand. With the tourniquet still applied I prepped the wound with Betadine and anesthetized the wound with 1% lidocaine with epinephrine. There was obvious muscle injury in the wound and a piece of whitish tissue which looked like a tendon but based on the location of the wound I was not certain if this was in fact the tendon. Wound was irrigated. There was no apparent foreign body of any significant size. The tourniquet was taken down. There was fairly copious bleeding but no bleeding that looked like large arterial bleeding. I then closed the wound with 3-0 nylon. The wound was closed with 8 sutures using a combination of vertical mattress sutures and simple interrupted sutures. Adequate wound edge approximation was achieved. After wound closure the patient said that he was experiencing a sense of diminished sensation to the volar forearm between the wound and the wrist. He does not feel that he had any diminished sensation in the hand or the fingers. I re-examined him after wound closure. He has good strength in all the fingers, particularly with flexion. However when I resisted flexion of the left ring finger he seemed to have discomfort. None of the other fingers exhibit this discomfort with resistance to flexion. However the flexor strength of the left ring finger was good. Sensation remained intact in both sides of all the fingers. He had an excellent radial and ulnar pulse. The hand was pink and well-perfused with good cap refill in all the fingers. The patient was given a tetanus shot. He was also given 2 g of IV cefazolin for wound infection prophylaxis. An x-ray of the left forearm was done after wound closure. No bony injury. There are some tiny bits of what is probably metallic foreign matter. I contacted the on-call physician bilingual teacher assistant for the orthopedic service with pictures of the wound. The patient will be discharged on antibiotics follow up with the orthopedic clinic further recommendations. Discharge Plan Discharge Clinical Impression: Laceration of left forearm Patient Disposition: Home, Self-Care Instructions: Laceration (ED) Additional Instructions: You have a large laceration on your left mid forearm. Please moss picker the prescription for the antibiotic prescribed. Take this antibiotic 4 times a day, approximately every 6 hours. I would take a dose before you go to bed tonight. Please keep the arm elevated at the level of your heart or higher. This will reduce swelling and bleeding. I have communicated with the orthopedic office and you should be getting a call from them tomorrow for an appointment for a wound check and additional recommendations regarding this wound. If you do not hear from them by mid day tomorrow please call the office yourself. My hope is that you will get an appointment in the next day or 2. You should get additional recommendations for wound care at the orthopedic office. Assuming all goes well and they do not feel any additional interventions are required the stitches should probably come out in about 12-14 days. You may use acetaminophen and ibuprofen for discomfort. Use the sling provided to remind you to keep the arm elevated. I would not returned to work until you have been cleared by the orthopedic office. If at any point you feel you develop any new or concerning symptoms regarding the wound please return directly to the emergency room for re-evaluation. Prescriptions: New cephalexin 500 mg capsule 500 mg PO QID 4 Days Qty: 16 0RF No Action ibuprofen 800 mg tablet 800 mg PO Q8H PRN (Reason: pain) Qty: 14 0RF acetaminophen [Tylenol Extra Strength] 500 mg tablet 1,000 mg PO QID PRN (Reason: fever or pain) Qty: 14 0RF bacitracin 500 unit/gram ointment 1 appl topical BID Qty: 30 0RF ibuprofen 600 mg tablet 600 mg PO Q6H PRN (Reason: fever or pain) Qty: 30 0RF ibuprofen 600 mg tablet 600 mg PO Q6H PRN (Reason: fever or pain) Qty: 20 0RF diphenhydramine HCl [Benadryl] 25 mg capsule 25 mg PO TID PRN (Reason: itching) 7 Days Qty: 21 0RF prednisone 20 mg tablet 40 mg PO DAILY 5 Days Qty: 10 0RF famotidine [Pepcid] 20 mg tablet 20 mg PO BID 5 Days Qty: 10 0RF Referrals: [facility] [Provider Group] ( laceration of mid left volar forearm with some muscle injury) Stand Alone Forms: Work/School Release Print Language: Welsh
[2024-01-11 19:19] VITALS: BP 149/85; PULSE 85; RESP 16; TEMP 36.6; O2SAT 97
[2024-01-11] MEDS: ceFAZolin Sodium/Dextrose,Iso 2 GM/50 ML PIGGYBACK IV (19:47)
[2024-01-11] MEDS: Diphth,Pertus(ACell),Tet Adult 0.5 ML SYRINGE IM (19:51)
[2024-01-11] MEDS: Bacitracin Oint 0.9 GM PACKET 2 APPL TOPICAL (21:26)
[2024-01-11 22:03] VITALS: BP 149/85; PULSE 85; RESP 16; TEMP 36.6; O2SAT 97
== END 2024-01-11 21:38 | disposition home or self-care (01) ==
PROVIDERS: Emergency Provider Emergency Medicine
DX: S51.812A Laceration without foreign body of left forearm, initial encounter (principal); W31.89XA Contact with other specified machinery, initial encounter; Y93.89 Activity, other specified; Y92.59 Other trade areas as the place of occurrence of the external cause; Y99.0 Civilian activity done for income or pay; Z23 Encounter for immunization
CPT/HCPCS: 12044; 73090; 90471; 90715; 96374; 99284; J0690

== ENCOUNTER 2024-01-17 12:17 | Outpatient (AMB) | payer OTHER, SELFPAY ==
--- NOTE | 2024-01-17 12:21 | A.OFFVIS_ITS ---
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 Patient reports he was working with a machine while fixing a car when the injury occurred. Patient reports numbness and tingling around incision site. He is able to make a fist and has sensitivity in his fingers. He is currently taking cephalexin and ibuprofen for pain with relief. Denies prior injuries or surgeries to the left hand or arm. This is not a work related injury. 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 He was working on a car with his friend when a heavy gas tank fell onto his left forearm, causing a laceration. He was seen in the ED where this was sutured, and he was given Abx. He is here with his girlfriend. He complains of pain in his forearm, as well as numbness about the laceration site, and somewhat extending towards his wrist. He denies any numbness in his hand. He says this began following is injury. He reports some difficulty making a fist with all his fingers, but he is able to use his hand for more normal motions. He says he is currently unemployed, and this happened while he was helping out a friend in their shop. 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 Review of Systems Const All systems reviewed & are unremarkable except as noted in HPI and below Physical Exam Vital Signs: BMI result Body Mass Index 36.3 Const General: cooperative, healthy appearing and no acute distress Orientation/consciousness: patient oriented x3 HEENT Head: Yes normocephalic and Yes atraumatic Eyes EOM: EOMs intact bilaterally Resp Effort & Inspection: normal respiratory effort and able to speak in complete sentences Cardio Jugular venous distension: no JVD Skin General skin exam: turgor normal Rashes: no rashes Neuro General: patient oriented x3 Extrem Other: Evaluation of Left Upper Extremity: The patient is alert, oriented, and in no acute distress Neuro: Median, Ulnar, Radial nerves motor and sensory intact and sensation is normal to the tips of all digits & the dorsal aspect of his hand Numbness in the distal volar forearm, extending from the forearm laceration to the distal wrist crease. Vascular: Cap refill brisk ROM: He can activel make a fist and extend all his digits Good FDP & FDS tendon function Some discomfort & weakness referred to the ring finger with FDP & FDS tendon testing Skin: There is a sutured laceration obliquely across the volar mid-forearm measuring ~7cm in length. General: No Ecchymosis. No Erythema or evidence of infection. Radiographs: 3 views of the left forearm from 01/11/24 were reviewed by me today. They show no fractures or dislocations. There are 3 radio-opaque foreign bodies retained int he forearm. Psych Appearance: grossly normal Affect: normal affect Attitude: cooperative Assessment & Plan Assessment & Plan (1) Laceration of left forearm: Code(s): S51.812A - Laceration without foreign body of left forearm, initial encounter Category: Medical (2) Left upper extremity numbness: Comment: Distal volar forearm Code(s): R20.0 - Anesthesia of skin Category: Medical Plan Assessment & Plan: 1. Left volar forearm laceration, DOI: 01/11/24 Sutured in ED on 01/11/24 This is NOT a work-related injury Transverse volar mid-forearm measuring ~7cm in length, partial injury to FDS & possibly FDP muscle bellies to the ring finger at myotendinous junction. 2. Left forearm numbness Extending from the volar forearm laceration distally to the distal wrist crease I educated him about this condition I discussed operative and non-operative treatment options I believe we can manage this conservatively, and he is in agreement I explained that he is likely to not regain sensation in his volar forearm, about the laceration site I explained the signs and symptoms of infection, if the patient develops any new or worsening erythema, drainage, pain, or warmth they should contact the clinic or attend the ED. He will continue to take his Abx as instructed I discussed activity modification, he is to lift nothing heavier than a cellphone for the next 4 weeks He will work on gentle ROM exercises at home He is to avoid any underwater activities at this time. He is able to wash this in the shower He will follow up in 1 week for a wound check, anticipate removal of every other suture. I anticipate some of the sutures will need to stay in until 3 weeks from his date of injury. Scribed for Bridgett Fagan MD by Aston Dacosta, medical assembly, on 01/17/24 at 12:45 PM, EST. Medications: Discontinued acetaminophen (Tylenol Extra Strength) Discontinued Reason: Patient Completed Course 1,000 mg (2 x 500 mg) PO QID PRN 14 tabs 0RF fever or pain ibuprofen Discontinued Reason: Patient Completed Course 800 mg PO Q8H PRN 14 tabs 0RF pain bacitracin Discontinued Reason: Patient Completed Course 1 appl topical BID 30 grams 0RF diphenhydramine HCl (Benadryl) Discontinued Reason: Patient Completed Course 25 mg PO TID 7 days PRN 21 caps 0RF itching famotidine (Pepcid) Discontinued Reason: Patient no longer taking 20 mg PO BID 5 days 10 tabs 0RF prednisone Discontinued Reason: Patient Completed Course 40 mg (2 x 20 mg) PO DAILY 5 days 10 tabs 0RF ibuprofen Discontinued Reason: Patient Completed Course 600 mg PO Q6H PRN 20 tabs 0RF fever or pain Coding Level of Care Code New Pt Level 4 (17800) Diagnoses Laceration of left forearm S51.812A Left upper extremity numbness R20.0
[2024-01-17 12:22] VITALS: BMI 36.3
== END 2024-01-17 13:09 | disposition home or self-care (01) ==
PROVIDERS: Visit Provider Orthopaedic Surgery
DX: S51.812A Laceration without foreign body of left forearm, initial encounter (principal); R20.0 Anesthesia of skin
CPT/HCPCS: 99203

== ENCOUNTER → 2024-01-17 12:17 | Outpatient (BNVA) | payer OTHER, SELFPAY | PROVIDERS: Visit Provider Orthopaedic Surgery | DX: S51.812A Laceration without foreign body of left forearm, initial encounter (principal); R20.0 Anesthesia of skin | CPT/HCPCS: 99202 ==

== ENCOUNTER 2024-02-02 13:32 | Outpatient (AMB) | payer OTHER, SELFPAY ==
--- NOTE | 2024-02-02 13:52 | MHC.OFFVIS ---
Vital Signs 02/02/24 13:56 Height 5 ft 6 in Weight 225 lb BMI 36.3 Handedness Right Intake Visit Reasons: OV- f/u left forearm lac, DOI 01/11/24 Intake Note: Yodit is a 23 year old right hand dominant male who presents today for a follow up s/p laceration of mid left volar forearm, DOI: 01/11/24. Patient reports his incision appears to be doing better. He denies any pain however says he feels numbness on the volar aspect of his wrist. He has completed his course of antibiotic. Allergies No Known Allergies Allergy (Verified 02/02/24 13:55) HPI HPI OV- f/u left forearm lac, DOI 01/11/24: Details: Patient is a 23-year-old right-hand dominant male who presents for follow-up evaluation of left forearm laceration date of injury 01/11/2024. Today, the patient reports that he is feeling well, and is experiencing minimal discomfort at the level of the laceration at baseline. The patient does report that he is experiencing some minor tenderness to palpation around the laceration site, and then he did experience some redness a few days ago, but this has decreased in size significantly. Patient reports that he did finish his previously prescribed course of antibiotics. Of note, the patient does state that he is still experiencing numbness in the distal forearm in the same area where this was happening at previous evaluation. Patient states that he does understand that he likely injured 1 of the nerves in his forearm, and then he may never get sensation in this area back. No other acute complaints or concerns at this time. 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 Physical Exam Vital Signs: BMI result Body Mass Index 36.3 Const General: cooperative, healthy appearing and no acute distress Orientation/consciousness: patient oriented x3 HEENT Head: Yes normocephalic and Yes atraumatic Eyes EOM: EOMs intact bilaterally Resp Effort & Inspection: normal respiratory effort and able to speak in complete sentences Cardio Jugular venous distension: no JVD Skin General skin exam: turgor normal Rashes: no rashes Neuro General: patient oriented x3 Extrem Other: Evaluation of Left Upper Extremity: The patient is alert, oriented, and in no acute distress Neuro: Median, Ulnar, Radial nerves motor and sensory intact and sensation is normal to the tips of all digits & the dorsal aspect of his hand Numbness in the distal volar forearm, extending from the forearm laceration to the distal wrist crease. Vascular: Cap refill brisk ROM: He can activel make a fist and extend all his digits Good FDP & FDS tendon function Skin: There is a sutured and well healed laceration obliquely across the volar mid-forearm measuring ~7cm in length. General: No Ecchymosis. No Erythema or evidence of infection. Psych Appearance: grossly normal Affect: normal affect Attitude: cooperative Assessment & Plan Assessment & Plan (1) Laceration of left forearm: Code(s): S51.812A - Laceration without foreign body of left forearm, initial encounter Category: Medical (2) Left upper extremity numbness: Comment: Distal volar forearm Code(s): R20.0 - Anesthesia of skin Category: Medical Plan Assessment & Plan: 1. Left volar forearm laceration, DOI: 01/11/24 Sutured in ED on 01/11/24 This is NOT a work-related injury Transverse volar mid-forearm measuring ~7cm in length, partial injury to FDS & possibly FDP muscle bellies to the ring finger at myotendinous junction. 2. Left forearm numbness Extending from the volar forearm laceration distally to the distal wrist crease I educated him about this condition I discussed operative and non-operative treatment options Sutures removed in the office today and Steri-Strips applied I once again explained that he is likely to not regain sensation in his volar forearm, about the laceration site I explained the signs and symptoms of infection, if the patient develops any new or worsening erythema, drainage, pain, or warmth they should contact the clinic or attend the ED. Patient was prescribed another course of Augmentin to take for one-week due to concern for potential minor infection versus suture irritation. I discussed activity modification, he is to lift nothing heavier than a cellphone at least until follow-up He will work on gentle ROM exercises at home He is to avoid any underwater activities at this time. He is able to wash this in the shower He will follow up in 1 week for a wound check, sooner with any acute concerns Medications: New amoxicillin-pot clavulanate 875-125 mg 1 tab PO BID 14 tabs 0RF 7 days Discontinued cephalexin Discontinued Reason: Patient Completed Course 500 mg PO QID 4 days 16 caps 0RF Coding Level of Care Code Est Pt Level 3 (80544) Diagnoses Laceration of left forearm S51.812A Left upper extremity numbness R20.0
[2024-02-02 13:56] VITALS: BMI 36.3
== END 2024-02-02 14:16 | disposition home or self-care (01) ==
LOC: HO.HOS 13:32
DX: S51.812A Laceration without foreign body of left forearm, initial encounter (principal); R20.0 Anesthesia of skin
CPT/HCPCS: 99214

== ENCOUNTER → 2024-02-02 13:32 | Outpatient (BNVA) | payer OTHER, SELFPAY | DX: S51.812A Laceration without foreign body of left forearm, initial encounter (principal); R20.0 Anesthesia of skin | CPT/HCPCS: 99212 ==

== ENCOUNTER 2024-02-10 13:14 | Outpatient (AMB) | payer OTHER, MEDICAID, SELFPAY ==
[2024-02-10 13:15] VITALS: BMI 36.3
--- NOTE | 2024-02-10 13:15 | MHC.OFFVIS ---
Vital Signs 02/10/24 13:15 Height 5 ft 6 in Weight 225 lb BMI 36.3 Intake Visit Reasons: OV- f/u left forearm lac, DOI 01/11/24 Intake Note: Yodit is a 23 year old male that presents in the office today for a follow up appointment, for a laceration DOI 01/11/24. Allergies No Known Allergies Allergy (Verified 02/10/24 13:21) HPI HPI OV- f/u left forearm lac, DOI 01/11/24: Details: Patient is a 23-year-old right-hand dominant male who presents for follow-up evaluation of left forearm laceration date of injury 01/11/2024. Today, the patient reports that he is feeling well, and is experiencing minimal discomfort at the level of the laceration at baseline. The patient does report that he is experiencing no tenderness to palpation around the laceration site, and that the redness previously seen at the laceration site has completely resolved. Patient reports that he did finish his previously prescribed course of antibiotics. Of note, the patient does state that he is still experiencing numbness in the distal forearm in the same area where this was happening at previous evaluation, but that his sensation has improved. Patient states that he does understand that he likely injured 1 of the nerves in his forearm, and then he may never get normal sensation in this area back. No other acute complaints or concerns at this time. 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 Physical Exam Vital Signs: BMI result Body Mass Index 36.3 Const General: cooperative, healthy appearing and no acute distress Orientation/consciousness: patient oriented x3 HEENT Head: Yes normocephalic and Yes atraumatic Eyes EOM: EOMs intact bilaterally Resp Effort & Inspection: normal respiratory effort and able to speak in complete sentences Cardio Jugular venous distension: no JVD Skin General skin exam: turgor normal Rashes: no rashes Neuro General: patient oriented x3 Extrem Other: Evaluation of Left Upper Extremity: The patient is alert, oriented, and in no acute distress Neuro: Median, Ulnar, Radial nerves motor and sensory intact and sensation is normal to the tips of all digits & the dorsal aspect of his hand Numbness in the distal volar forearm, extending from the forearm laceration to the distal wrist crease. Vascular: Cap refill brisk ROM: He can activel make a fist and extend all his digits Good FDP & FDS tendon function Skin: There is a sutured and well healed laceration obliquely across the volar mid-forearm measuring ~7cm in length. General: No Ecchymosis. No Erythema or evidence of infection. Psych Appearance: grossly normal Affect: normal affect Attitude: cooperative Assessment & Plan Assessment & Plan (1) Laceration of left forearm: Code(s): S51.812A - Laceration without foreign body of left forearm, initial encounter Category: Medical Plan Laceration of left forearm Date of injury 01/11/2024 Patient appears to be recovering very well from his injury Patient is educated about the typical recovery course At this time, patient is informed that he is recovering very well, and then he likely will not require an acute follow-up with us Patient understands this is amenable to this plan Patient will follow-up as needed with any acute concerns Coding Level of Care Code Est Pt Level 3 (55890) Diagnoses Laceration of left forearm S51.812A
== END 2024-02-10 13:26 | disposition home or self-care (01) ==
DX: S51.812A Laceration without foreign body of left forearm, initial encounter (principal)
CPT/HCPCS: 99213

== ENCOUNTER → 2024-02-10 13:14 | Outpatient (BNVA) | payer OTHER, MEDICAID, SELFPAY | DX: S51.812D Laceration without foreign body of left forearm, subsequent encounter (principal) | CPT/HCPCS: 99212 ==